=== PATIENT | female | born 1950 | race Caucasian/White ===

== ENCOUNTER 2019-08-18 20:36 | Observation (INO) | payer MEDICARE, MEDICAID ==
[~2019-08-18] VITALS: Ht 172.7 cm; Wt 75.9 kg
[2019-08-18 20:49] VITALS: BP 137/60
[2019-08-18 20:51] LABS: URINE BILIRUBIN NEGATIVE (Negative); URINE BLOOD NEGATIVE (Negative); URINE CLARITY CLEAR; URINE COLOR YELLOW; URINE GLUCOSE-RANDOM NEGATIVE (Negative); URINE KETONES NEGATIVE (Negative); URINE LEUKOCYTES-REFLEX NEGATIVE (Negative); URINE NITRITE-REFLEX NEGATIVE (Negative); URINE PROTEIN NEGATIVE (Negative); URINE UROBILINOGEN 0.2 E.U./dl (0.2-1.0)
[2019-08-18] MEDS ORDERED: LEVO-T25 MCG PO (20:57)
[2019-08-18] MEDS ORDERED: HALOPERIDOL 1 MG1 MG PO (20:57)
[2019-08-18] MEDS ORDERED: VITAMIN D250 MC1 PO (20:59)
[2019-08-18 21:01] LABS: AMP/METHAMP Negative (Negative); BARBITURATES Negative (Negative); BENZODIAZEPINES Negative (Negative); COCAINE Negative (Negative); METHADONE Negative (Negative); OPIATES Negative (Negative); PCP Negative (Negative); THC Negative (Negative)
[2019-08-18 21:17] LABS: ABSOLUTE EOSINOPHILS 0.1 thou/uL (0.0-0.7); ABSOLUTE LYMPHOCYTES 2.1 thou/uL (0.8-5.3); ABSOLUTE MONOCYTES 0.6 thou/uL (0.0-1.2); ABSOLUTE NEUTROPHILS 3.5 thou/uL (1.6-8.1); BASOPHILS 0.5 %; EOSINOPHILS 2.1 %; HEMATOCRIT 36.5 % (37.0-47.0); HEMOGLOBIN 12.6 gm/dL (12.0-15.0); LYMPHOCYTES 33.6 %; MCH 31.2 pg (26.0-34.0); MCHC 34.4 g/dL (28.0-37.0); MCV 90.7 fL (80.0-100.0); MONOCYTES 9.2 %; MPV 8.3 fl. (7.2-11.1); NUCLEATED RBCS 0 /100WBC; PLATELET COUNT* 198 thou/uL (150-400); POLYS 54.6 %; RBC 4.03 mil/uL (4.20-5.00); RDW-CV 13.4 % (10.5-14.5); WBC 6.4 thou/uL (4.0-11.0)
[2019-08-18 21:25] LABS: CALCIUM 8.7 mg/dL (8.5-10.1); CREATININE 0.9 mg/dL (0.6-1.3); POTASSIUM 3.7 mmol/L (3.5-5.1)
[2019-08-18 21:29] LABS: ALBUMIN 3.6 g/dL (3.4-5.0); MAGNESIUM 2.1 mg/dL (1.8-2.4); TOTAL BILIRUBIN 0.2 mg/dL (<0.1-1.0); TOTAL PROTEIN 6.3 g/dL (6.4-8.2)
[2019-08-18 21:32] LABS: ACETAMINOPHEN < 2 ug/mL (10-30); ALCOHOL < 10 mg/dL (<10); SALICYLATE < 2.8 mg/dL (2.8-20.0)
[2019-08-19 00:31] VITALS: BP 114/51
[2019-08-19 01:15] VITALS: BP 140/59
[2019-08-19 03:10] VITALS: BP 114/51
[2019-08-19] MEDS ORDERED: TYLENOL325 MG PO (04:51)
[2019-08-19] MEDS ORDERED: FLEET ENEMA133 ML RECTAL (04:52)
[2019-08-19] MEDS ORDERED: MILK OF MA400 MG/5 M PO (04:53)
[2019-08-19] MEDS ORDERED: ARISTADA882 MG/3.2 IM (04:55)
[2019-08-19] MEDS ORDERED: LORAZEPAM 2MG2 MG/M1 IM (04:56)
[2019-08-19] MEDS ORDERED: AMBIEN5 MG PO (04:59)
[2019-08-19] MEDS ORDERED: ATIVAN2 MG PO (05:00)
--- NOTE | 2019-08-19 07:14 | NUR ---
REPORT RECIEVED FROM ER. PT ORIENTED TO ROOM, CALL LIGHT SHOWN, FALL AGREEMENT WENT OVER, PT UNABLE TO VERBALIZE UNDERSTANDING. PT COMBATIVE AT TIMES WITH STAFF, WALKING HALLWAY, UNABLE TO REDIRECT. PT PULLED IV OUT AND STARTED YELLING AND HITTING AT STAFF WHEN ATTEMPTED TO PLACE ON [address] [employer]. DR NOTIFIED, ORDERS RECIEVED. FALL PRECAUTIONS IN PLACE. PRN AGGITATION MEDS GIVEN PER E-MAR. WILL CONTINUE WITH PLAN OF CARE.
[2019-08-19 08:00] VITALS: BP 120/48
--- NOTE | 2019-08-19 09:40 | NUR ---
SHINE called pt to complete initial assessment. Pt lives at [facility]. Pt is currently at [facility] for SNF and is in his copay days so he hopes to go home soon. Pt with mental illness and inpt psych history both recent and prolonged. SHINE spoke with pt nurse who reports that pt needs to dc to inpt psych as soon as possible. SW faxing information to both [facility] and [facility] inpt psych facilities and will continue to assist with safe dc placement as soon as possible.
--- NOTE | 2019-08-19 10:07 | EKG ---
[place] [address] ELECTROCARDIOGRAM REPORT Name: AKIN MAK Room: [address]R.#: [id number] Admission: 08/19/19 Attend Phys: Wil solorzano Sa Discharge: Date of : 48 Date of Service: 08/18/192049 Report #: [id number] THIS REPORT FOR: //name// [facility] ED Test Date: 2019-08-18 Test Time: 20:50:50 Pat Name: AKIN MAK Department: Room: [facility] Gender: F Wrist Liner: KYE : 1950 Requested By: Conchita Smith Order Number: [id number] MD: Bhavesh Retana Measurements Intervals Meredith Rate: 55 P: 53 OR: 215 QRS: 37 QRSD: 86 T: 48 QT: 419 QTc: 401 Interpretive Statements Sinus bradycardia with first degree av block Borderline prolonged OR interval No previous ECG available for comparison Electronically Signed On 08-19-2019 10:06:56 CDT by Bhavesh Retana [email or web address] <ELECTRONICALLY SIGNED> By: Bhavesh Retana MD, FAC 08/19/19 1006 49 49 Bhavesh Retana MD, [facility] /EPI
[2019-08-19 11:52] VITALS: BP 122/40
--- NOTE | 2019-08-19 16:14 | NUR ---
PT [place]CHARGED WITH [facility] [place] [facility] [place] PT WAS GIVEN AN 2MG IM ATIVAN PER DR SMITH. FAMILY WAS NOTIFIED. REPORT WAS CALLED TO NATALIE.
--- NOTE | 2019-08-20 11:00 | CON ---
[address] [address] CONSULTATION Name: AKIN MAK Room: [address] Enid Harden#: [id number] Admission: 08/19/19 Attend Phys: Wil Centeno Discharge: 08/19/19 Date of : 48 Report #: [id number] THIS REPORT FOR: //name// cc: Armando Reyna MD, Srinath MD ~ THIS REPORT FOR: //name// CC: Wil Metzger DATE OF SERVICE: 08/19/2019 CARDIOLOGY CONSULTATION HISTORY OF PRESENT ILLNESS: The patient is a 68-year-old white female who I was asked to see in the hospital today after she was noted to be bradycardic. The history is obtained from the patient as well as some records here present. The patient has a history of schizophrenia and is currently in a rest home. The patient has never been here to [facility] before. She was brought to the Emergency Room last night. In the past, she has been admitted to [facility] and [facility]. She apparently was just discharged a week ago from [facility]. She has been in a rest home. Apparently yesterday, she began to become combative and yelling out at the nursing staff. Paramedics were called. The patient was uncooperative. She was sedated by the paramedics and brought to [facility] by ambulance. She apparently had been standing and was screaming, flailing her arms. She was brought here to [facility] and admitted. She was noted to be bradycardic. Cardiology consultation requested. She denies a history of heart disease. She denies a history of chest pain, shortness of breath, or lightheadedness. She apparently has fallen in the past. PAST MEDICAL HISTORY: She has had cholecystectomy, hysterectomy. No history of hypertension, diabetes, hyperlipidemia. MEDICATIONS: Her medications at rest home include Haldol, Synthroid. ALLERGIES: SHE HAS INTOLERANCE TO PROPOXYPHENE. FAMILY HISTORY: Her mother had heart disease. SOCIAL HISTORY: She is . Her is actually in a care center because of kidney disease. She has no history of smoking or alcohol abuse. REVIEW OF SYSTEMS: No history of stroke, asthma, liver disease, kidney disease, cancer, chronic skin condition[place] [address] CONSULTATION Name: AKIN MAK Room: [address] Fina#: [id number] Admission: 08/19/19 Attend Phys: Wil Centeno Discharge: 08/19/19 Date of : 48 Report #: [id number] PHYSICAL EXAMINATION: GENERAL: Revealed an elderly female lying in bed. She appeared in no distress. VITAL SIGNS: She had a blood pressure 110/60, pulse 70. She is afebrile. HEENT: She was anicteric. Conjunctivae pink. Mucous membranes moist. NECK: Veins nondistended. No carotid bruits. CHEST: Clear to auscultation. CARDIAC: Regular bradycardia, no significant murmur. ABDOMEN: Soft. EXTREMITIES: Had no edema. Dorsalis pedis pulse 1+ bilaterally. SKIN: Cool and dry. NEUROLOGIC: Nonfocal. DIAGNOSTIC DATA: Her ECG on admission showed sinus bradycardia. There was no significant ST or T-wave change noted. Her workup in the Emergency Room yesterday, she apparently had a CT scan of the head that showed no acute abnormality. LABORATORY WORK: Sodium 143, potassium 3.7, creatinine is 0.9. Troponins were all 0.06. White blood cell count 6.4, hemoglobin 12.6. IMPRESSION AND RECOMMENDATIONS: 1. Sinus bradycardia. I would avoid beta-blockers. I would check thyroid function studies. I would not recommend pacemaker at this time. 2. Schizophrenia. 3. Bipolar disorder. 4. Hypothyroidism. I would check thyroid function studies. <ELECTRONICALLY SIGNED> By: Bhavesh Retana MD, [facility] 08/20/19 [id number] Retana MD, FACC /nt
== END 2019-08-19 16:00 ==
LOC: M.ERS 20:36 → M.TBA-ER 08-19 00:30 → M.2W 08-19 00:30
PROVIDERS: Emergency Medicine; ADMIT Family Medicine; ATTEND Family Medicine
DX: R00.1 Bradycardia, unspecified (principal); T41.295A Adverse effect of other general anesthetics, initial encounter; F29 Unspecified psychosis not due to a substance or known physiological condition; F25.9 Schizoaffective disorder, unspecified; F31.9 Bipolar disorder, unspecified; E03.9 Hypothyroidism, unspecified; E66.9 Obesity, unspecified; F41.1 Generalized anxiety disorder; Z79.899 Other long term (current) drug therapy; Y92.89 Other specified places as the place of occurrence of the external cause